=== PATIENT | male | born 1955 | race Hispanic/Latino ===

== ENCOUNTER 2019-04-13 05:54 | Observation (INO) | payer OTHER ==
[2019-04-13] MEDS ORDERED: ASPIRIN PO ONE (05:57)
--- NOTE | 2019-04-13 06:12 | Emergency Department Report ---
ED Chest Pain HPI - General Chief Complaint: Chest Pain Stated Complaint: CHEST PAIN Time Seen by Provider: 04/13/19 06:05 Source: patient, EMS Mode of arrival: Stretcher Limitations: No Limitations - History of Present Illness Initial Comments: Patient is a male presents to emergency room with complaints of chest pain. He states his chest pain started at 4:30 this morning. Patient states the chest pain is left chest and is nonradiating. Patient states the chest pain feels like a pressure or heaviness. Patient states it feels like semisitting on his chest. Patient states he received nitroglycerin 2 in route by EMS with some relief. Patient states he is not on aspirin every day. He states he takes Plavix everyday. He states he has a heart attack in July 2018 and received 3 stents. Patient denies fever and chills. Patient denies nausea vomiting. Patient denies shortness of breath. MD Complaint: chest pain -: Sudden Onset: during rest Pain Location: substernal, left chest Pain Radiation: none Severity: moderate Severity scale (0 -10): 5 Quality: tightness, heaviness, pressure Consistency: constant Improves With: nitroglycerin, rest Worsens With: exertion re: denies: nausea, vomting, diaphoresis, dyspnea, sense of impending doom Other Symptoms: denies: cough, fever, syncope, rash, acid taste in mouth, leg swelling, palpitations, burping Treatments Prior to Arrival: none Aspirin use within the Past 7 Days: (0) No - Related Data On Oral Contraceptives: No Home Medications Medication Instructions Recorded Confirmed Last Taken Valsartan [Diovan] 160 mg PO QDAY 04/13/19 04/13/19 04/13/19 Warfarin [Coumadin] 5 mg PO QDAY 04/13/19 04/13/19 04/13/19 Previous Rx's Medication Instructions Recorded Last Taken Type AtorvaSTATin [Lipitor] 80 mg PO QHS #30 tablet 08/05/18 04/13/19 Rx Clopidogrel [Plavix] 75 mg PO QDAY #30 tablet 08/05/18 04/13/19 Rx ISOSORBIDE MONOnitrate [Imdur ER] 30 mg PO QDAY #30 tablet 08/05/18 04/13/19 Rx Metoprolol [Lopressor TAB] 50 mg PO BID #60 tablet 08/05/18 04/13/19 Rx metFORMIN [Glucophage] 500 mg PO BID #60 tablet 08/05/18 04/13/19 Rx Allergies Allergy/AdvReac Type Severity Reaction Status Date / Time No Known Allergies Allergy Unverified 10/01/14 08:12 Heart Score - HEART Score History: Moderately suspicious EKG: Non-specific Age: 45-65 Risk factors: > 3 risk factors or hx of atherosclerotic disease Troponin: < normal limit HEART Score: 5 ED Review of Systems ROS: Stated complaint: CHEST PAIN Other details as noted in HPI Constitutional: denies: chills, fever Eyes: denies: eye pain, eye discharge, vision change ENT: denies: ear pain, throat pain Respiratory: denies: cough, shortness of breath, wheezing Cardiovascular: chest pain. denies: palpitations Endocrine: no symptoms reported Gastrointestinal: denies: abdominal pain, nausea, diarrhea Genitourinary: denies: urgency, dysuria Musculoskeletal: denies: back pain, joint swelling, arthralgia Skin: denies: rash, lesions Neurological: denies: headache, weakness, paresthesias Psychiatric: denies: anxiety, depression Hematological/Lymphatic: denies: easy bleeding, easy bruising ED Past Medical Hx - Past Medical History Previous Medical History?: Yes Hx Hypertension: Yes Hx Heart Attack/AMI: Yes (07/25 - 3 stents) Hx Congestive Heart Failure: No Hx Diabetes: Yes Hx Asthma: No Hx COPD: No Additional medical history: Noncompliant - Surgical History Past Surgical History?: Yes Hx Coronary Stent: Yes Additional Surgical History: Colon cancer surgery - Family History Family history: no significant - Social History Smoking Status: Never Smoker Substance Use Type: None - Medications Home Medications: Home Medications Medication Instructions Recorded Confirmed Last Taken Type AtorvaSTATin [Lipitor] 80 mg PO QHS #30 tablet 08/05/18 04/13/19 04/13/19 Rx Clopidogrel [Plavix] 75 mg PO QDAY #30 tablet 08/05/18 04/13/19 04/13/19 Rx ISOSORBIDE MONOnitrate [Imdur ER] 30 mg PO QDAY #30 tablet 08/05/18 04/13/19 04/13/19 Rx Metoprolol [Lopressor TAB] 50 mg PO BID #60 tablet 08/05/18 04/13/19 04/13/19 Rx metFORMIN [Glucophage] 500 mg PO BID #60 tablet 08/05/18 04/13/19 04/13/19 Rx Valsartan [Diovan] 160 mg PO QDAY 04/13/19 04/13/19 04/13/19 History Warfarin [Coumadin] 5 mg PO QDAY 04/13/19 04/13/19 04/13/19 History ED Physical Exam - General Limitations: No Limitations General appearance: alert, in no apparent distress - Head Head exam: Present: atraumatic, normocephalic - Eye Eye exam: Present: normal appearance - ENT ENT exam: Present: mucous membranes moist - Neck Neck exam: Present: normal inspection - Respiratory Respiratory exam: Present: normal lung sounds bilaterally. Absent: respiratory distress - Cardiovascular Cardiovascular Exam: Present: regular rate, normal rhythm. Absent: systolic murmur, diastolic murmur, rubs, gallop - GI/Abdominal GI/Abdominal exam: Present: soft, normal bowel sounds - Rectal Rectal exam: Present: deferred - Extremities Exam Extremities exam: Present: normal inspection - Back Exam Back exam: Present: normal inspection - Neurological Exam Neurological exam: Present: alert, oriented X3 - Psychiatric Psychiatric exam: Present: normal affect, normal mood - Skin Skin exam: Present: warm, dry, intact, normal color. Absent: rash ED Course Vital Signs 04/13/19 04/13/19 04/13/19 05:55 06:42 06:43 Temperature 97.9 F Pulse Rate 88 80 Respiratory 20 18 22 Rate Blood Pressure Blood Pressure 129/81 110/68 [Right] O2 Sat by Pulse 99 95 Oximetry 04/13/19 04/13/19 04/13/19 07:26 07:30 08:00 Temperature 98.1 F Pulse Rate 72 74 62 Respiratory 16 13 18 Rate Blood Pressure 113/71 114/66 Blood Pressure 118/74 [Right] O2 Sat by Pulse 97 97 Oximetry 04/13/19 04/13/19 04/13/19 08:30 09:00 09:31 Temperature Pulse Rate 62 61 61 Respiratory 14 19 13 Rate Blood Pressure 112/65 108/70 116/60 Blood Pressure [Right] O2 Sat by Pulse 97 95 97 Oximetry 04/13/19 04/13/19 04/13/19 10:00 10:30 11:00 Temperature Pulse Rate 61 64 63 Respiratory 15 16 21 Rate Blood Pressure 104/60 92/47 99/56 Blood Pressure [Right] O2 Sat by Pulse 98 97 97 Oximetry - Reevaluation(s) Reevaluation #1: I discussed all results with patient. Discussed plan with the patient. Patient will be admitted to the hospital service. Patient agrees to plan of care. 04/13/19 09:31 - Consultations Consultation #1: Hospitalist consulted for admission. Hospitalist to admit patient. Hospitalist to assume care patient. Bridging orders placed 04/13/19 09:31 RAYSHAWN score - Rayshawn Score Age > 65: (0) No Aspirin use within the Past 7 Days: (0) No 3 or more CAD Risk Factors: (1) Yes 2 or more Angina events in past 24 hrs: (0) No Known CAD with more than 50% Stenosis: (0) No Elevated Cardiac Markers: (0) No ST Deviation Greater than 0.5mm: (0) No RAYSHAWN Score: 1 ED Medical Decision Making - Lab Data Result diagrams: 04/13/19 06:04 04/13/19 06:04 - EKG Data -: EKG Interpreted by Me EKG shows normal: sinus rhythm, axis, intervals, QRS complexes, ST-T waves Rate: normal - Radiology Data Radiology results: report reviewed, image reviewed interpreted by me: No acute findings on chest x-ray - Medical Decision Making Patient is a 63-year-old male that is emergent with chest pain. Patient has a history of CAD and a recent OR with stent placed. Patient admitted to the hospitalist service. Patient's initial cardiac workup negative. Patient's EKG negative. Patient's chest x-ray negative. Patient admitted to rule out ACS. - Differential Diagnosis ACS. Chest pain. CAD. Diabetes Critical Care Time: Yes Critical care attestation.: If time is entered above; I have spent that time in minutes in the direct care of this critically ill patient, excluding procedure time. Critical Care Time: 35 minutes ED Disposition Clinical Impression: Diabetes mellitus Qualifiers: Diabetes mellitus type: type 2 Diabetes mellitus care home insulin use: with meterman use Diabetes mellitus complication status: with other specified complication Qualified Code(s): E11.69 - Type 2 diabetes mellitus with other specified complication Chest pain Qualifiers: Chest pain type: unspecified Qualified Code(s): R07.9 - Chest pain, unspecified CAD (coronary artery disease) Qualifiers: Coronary Disease-Associated Artery/Lesion type: [place] artery [place] vs. transplanted heart: [place] heart Associated angina: angina presence unspecified Qualified Code(s): I25.10 - Atherosclerotic heart disease of [place] coronary artery without angina pectoris Disposition: OP ADMIT IP TO THIS HOSP Is pt being admited?: Yes Does the pt Need Aspirin: No Condition: Critical Time of Disposition: 09:35
[2019-04-13] MEDS ORDERED: MORPHINE IV ONE (06:21)
[2019-04-13 06:48] LABS: Basophils # (Auto) 0.1 K/mm3 (0.0-0.1); Basophils % (Auto) 0.9 % (0.0-1.8); Eosinophils # (Auto) 0.2 K/mm3 (0.0-0.4); Eosinophils % (Auto) 2.2 % (0.0-4.3); Hematocrit 41.4 % (35.5-45.6); Hemoglobin 14.2 gm/dl (11.8-15.2); Lymphocytes # (Auto) 1.9 K/mm3 (1.2-5.4); Lymphocytes % (Auto) 26.7 % (13.4-35.0); Mean Corpuscular HGB Conc 34 % (32-34); Mean Corpuscular Volume 89 fl (84-94); Monocytes # (Auto) 0.5 K/mm3 (0.0-0.8); Monocytes % (Auto) 7.1 % (0.0-7.3); Platelet Count 202 K/mm3 (140-440); Red Blood Count 4.66 M/mm3 (3.65-5.03); Red Cell Distribution Width 13.5 % (13.2-15.2)
--- NOTE | 2019-04-13 06:58 | XRay Report ---
CHEST 1 VIEW INDICATION / CLINICAL INFORMATION: Chest Pain. COMPARISON: 08/04/2018 FINDINGS: SUPPORT DEVICES: None. HEART / MEDIASTINUM: No significant abnormality. LUNGS / PLEURA: No significant pulmonary or pleural abnormality. No pneumothorax. ADDITIONAL FINDINGS: No significant additional findings. IMPRESSION: 1. No significant change Signer Name: Salty Griffith MD Signed: 04/13/2019 6:53 AM Workstation Name: [id number]
[2019-04-13 08:46] LABS: BUN/Creatinine Ratio 20; Blood Urea Nitrogen 14 mg/dL (9-20); Calcium 8.9 mg/dL (8.4-10.2); Hemolysis Index 5
[2019-04-13] MEDS ORDERED: ZOFRAN IV PRN (10:31)
[2019-04-13] MEDS ORDERED: SODIUM CHLORIDE FLUSH SYRINGE 10 ML IV PRN (10:31)
[2019-04-13] MEDS ORDERED: TYLENOL PO PRN (10:31)
[2019-04-13] MEDS ORDERED: PERCOCET 5/325 PO PRN (10:31)
[2019-04-13] MEDS ORDERED: MORPHINE IV PRN (10:31)
[2019-04-13] MEDS ORDERED: D50W (25GM) Syringe IV PRN (10:35)
--- NOTE | 2019-04-13 10:37 | History and Physical Report ---
History of Present Illness History of present illness: 63m who presents with intermittent chest pain since 4:30am this morning Medications and Allergies Allergies Allergy/AdvReac Type Severity Reaction Status Date / Time No Known Allergies Allergy Unverified 10/01/14 08:12 Home Medications Medication Instructions Recorded Confirmed Last Taken Type glyBURIDE [Glyburide] 5 mg PO QDAY #60 tablet 03/28/16 08/04/18 Unknown Rx Aspirin [Aspirin BABY CHEW TAB] 81 mg PO QDAY tab.chew 08/05/18 Unknown Rx AtorvaSTATin [Lipitor] 80 mg PO QHS #30 tablet 08/05/18 Unknown Rx Clopidogrel [Plavix] 75 mg PO QDAY #30 tablet 08/05/18 Unknown Rx ISOSORBIDE MONOnitrate [Imdur ER] 30 mg PO QDAY #30 tablet 08/05/18 Unknown Rx Losartan [Cozaar] 25 mg PO QDAY #30 tablet 08/05/18 Unknown Rx Metoprolol [Lopressor TAB] 50 mg PO BID #60 tablet 08/05/18 Unknown Rx metFORMIN [Glucophage] 500 mg PO BID #60 tablet 08/05/18 Unknown Rx Active Meds: Active Medications Acetaminophen (Tylenol) 650 mg PO Q4H PRN PRN Reason: Pain MILD(1-3)/Fever >100.5/COREA Aspirin (Baby Aspirin) 81 mg PO QDAY [facility] Atorvastatin Calcium (Lipitor) 80 mg PO QHS [facility] Clopidogrel Bisulfate (Plavix) 75 mg PO QDAY [facility] Enoxaparin Sodium (Lovenox) 40 mg SUB-Q QDAY [facility] Glyburide (Diabeta) 5 mg PO QDAY [facility] Isosorbide Mononitrate (Imdur) 30 mg PO QDAY [facility] Losartan Potassium (Cozaar) 25 mg PO QDAY [facility] Metoprolol Tartrate (Lopressor) 50 mg PO BID [facility] Morphine Sulfate (Morphine) 2 mg IV Q4H PRN PRN Reason: Pain, Moderate (4-6) Ondansetron HCl (Zofran) 4 mg IV Q8H PRN PRN Reason: Nausea And Vomiting Oxycodone/Acetaminophen (Percocet 5/325) 1 tab PO Q6H PRN PRN Reason: Pain, Moderate (4-6) Sodium Chloride (Sodium Chloride Flush Syringe 10 Ml) 10 ml IV BID [facility] Sodium Chloride (Sodium Chloride Flush Syringe 10 Ml) 10 ml IV PRN PRN PRN Reason: LINE FLUSH Exam - Constitutional Vitals: Temp Pulse Resp BP Pulse Ox 98.1 F 61 19 108/70 95 04/13/19 07:26 04/13/19 09:00 04/13/19 09:00 04/13/19 09:00 04/13/19 09:00 General appearance: Present: no acute distress, well-nourished - EENT Eyes: Present: PERRL ENT: hearing intact, clear oral mucosa - Neck Neck: Present: supple, normal ROM - Respiratory Respiratory effort: normal Respiratory: bilateral: CTA - Cardiovascular Heart Sounds: Present: S1 & S2. Absent: rub, click - Extremities Extremities: pulses symmetrical, No edema Peripheral Pulses: within normal limits - Abdominal General gastrointestinal: Present: soft, non-tender, non-distended, normal bowel sounds Male genitourinary: Present: normal - Integumentary Integumentary: Present: clear, warm, dry - Musculoskeletal Musculoskeletal: gait normal, strength equal bilaterally - Psychiatric Psychiatric: appropriate mood/affect, intact judgment & insight - Neurologic Neurologic: CNII-XII intact, moves all extremities Results - Labs CBC & Chem 7: 04/13/19 06:04 04/13/19 06:04 Labs: Laboratory Last Values WBC 7.1 K/mm3 (4.5-11.0) 04/13/19 06:04 RBC 4.66 M/mm3 (3.65-5.03) 04/13/19 06:04 Hgb 14.2 gm/dl (11.8-15.2) 04/13/19 06:04 Hct 41.4 % (35.5-45.6) 04/13/19 06:04 MCV 89 fl (84-94) 04/13/19 06:04 MCH 30 pg (28-32) 04/13/19 06:04 MCHC 34 % (32-34) 04/13/19 06:04 RDW 13.5 % (13.2-15.2) 04/13/19 06:04 Plt Count 202 K/mm3 (140-440) 04/13/19 06:04 Lymph % (Auto) 26.7 % (13.4-35.0) 04/13/19 06:04 Whiteside % (Auto) 7.1 % (0.0-7.3) 04/13/19 06:04 Eos % (Auto) 2.2 % (0.0-4.3) 04/13/19 06:04 Baso % (Auto) 0.9 % (0.0-1.8) 04/13/19 06:04 Lymph # 1.9 K/mm3 (1.2-5.4) 04/13/19 06:04 Whiteside # 0.5 K/mm3 (0.0-0.8) 04/13/19 06:04 Eos # 0.2 K/mm3 (0.0-0.4) 04/13/19 06:04 Baso # 0.1 K/mm3 (0.0-0.1) 04/13/19 06:04 Seg Neutrophils % 63.1 % (40.0-70.0) 04/13/19 06:04 Seg Neutrophils # 4.5 K/mm3 (1.8-7.7) 04/13/19 06:04 Sodium 137 mmol/L (137-145) 04/13/19 06:04 Potassium 4.1 mmol/L (3.6-5.0) 04/13/19 06:04 Chloride 103.9 mmol/L (98-107) 04/13/19 06:04 Carbon Dioxide 19 mmol/L (22-30) L 04/13/19 06:04 18 mmol/L 04/13/19 06:04 BUN 14 mg/dL (9-20) 04/13/19 06:04 0.7 mg/dL (0.8-1.5) L 04/13/19 06:04 Estimated GFR > 60 ml/min 04/13/19 06:04 20 % 04/13/19 06:04 Glucose 209 mg/dL (75-100) H 04/13/19 06:04 Calcium 8.9 mg/dL (8.4-10.2) 04/13/19 06:04 0.010 ng/mL (0.00-0.029) 04/13/19 09:03 Assessment and Plan Assessment and plan: 63M with hx of cad sp stents who pw chest pain x1 day Chest pain, hx of cad sp aspirin, trop neg x 2, cardiology consult keep npo, morphine prn chest pain DM ssi, cont glyburide, hold metformin as he may receive contrast dvt ppx- lovenox
[2019-04-13] MEDS ORDERED: COZAAR PO SCH (11:00)
--- NOTE | 2019-04-13 12:01 | Consultation ---
History of Present Illness Consult date: 04/13/19 Requesting physician: ROSARIO STANTON Consult reason: chest pain History of present illness: The pt is a 63 YO male with past medical history of CAD s/p acute anterior STEMI with PCI of prox LAD, mid LAD (culprit lesion) and distal LAD on 08/03/2018, HTN, HLP, DM, morbid obesity, HFrEF, CMP, LV thrombus, anticoagulated with coumadin. He is followed in our office by Dr. Dudley. He presented with chest pain which he noted when he woke up this morning at 4:30AM. He states he was feeling well last night when he went to sleep, no chest pain at that time. He describes the pain as a constant midsternal and left-sided pressure which worsened throughout the morning as he was getting dressed for work. He was walking out to his truck when he noted dizziness and nausea and worsening chest pain and thus he decided to seek medical attention. The pain is similar to the pain he experienced with his AMI, however the pain is not as intense as it was with the AMI. He also reports dyspnea on exertion for approximately the past 1 week. He denies any palpitations, vomiting, diaphoresis or syncope. He reports compliance with his home medication regimen, including coumadin and plavix. On evaluation, pt reports that his pain is nearly resolved after receiving ASA 325 and morphine. Echo done in our office on 02/21/2019 showed EF 35-40%, apical thrombus noted in LV apex, LV mid-distal septal hypokinesis, mild TR, RVSP 34mmHg. Past History Past Medical History: CAD, diabetes, heart failure, hypertension, hyperlipidemia, other (LV apical thrombus) Past Surgical History: PTCA Social history: denies: smoking, alcohol abuse, prescription drug abuse Medications and Allergies Allergies Allergy/AdvReac Type Severity Reaction Status Date / Time No Known Allergies Allergy Unverified 10/01/14 08:12 Home Medications Medication Instructions Recorded Confirmed Last Taken Type AtorvaSTATin [Lipitor] 80 mg PO QHS #30 tablet 08/05/18 04/13/19 04/13/19 Rx Clopidogrel [Plavix] 75 mg PO QDAY #30 tablet 08/05/18 04/13/19 04/13/19 Rx ISOSORBIDE MONOnitrate [Imdur ER] 30 mg PO QDAY #30 tablet 08/05/18 04/13/19 04/13/19 Rx Metoprolol [Lopressor TAB] 50 mg PO BID #60 tablet 08/05/18 04/13/19 04/13/19 Rx metFORMIN [Glucophage] 500 mg PO BID #60 tablet 08/05/18 04/13/19 04/13/19 Rx Valsartan [Diovan] 160 mg PO QDAY 04/13/19 04/13/19 04/13/19 History Warfarin [Coumadin] 5 mg PO QDAY 04/13/19 04/13/19 04/13/19 History Active Meds: Active Medications Acetaminophen (Tylenol) 650 mg PO Q4H PRN PRN Reason: Pain MILD(1-3)/Fever >100.5/COREA Aspirin (Baby Aspirin) 81 mg PO QDAY [facility] Atorvastatin Calcium (Lipitor) 80 mg PO QHS [facility] Clopidogrel Bisulfate (Plavix) 75 mg PO QDAY [facility] Dextrose (D50w (25gm) Syringe) 50 ml IV PRN PRN PRN Reason: Hypoglycemia Enoxaparin Sodium (Lovenox) 40 mg SUB-Q QDAY [facility] Glyburide (Diabeta) 5 mg PO QDAY [facility] Insulin Human Lispro (Humalog) 0 unit SUB-Q ACHS [facility]; Protocol Isosorbide Mononitrate (Imdur) 30 mg PO QDAY [facility] Losartan Potassium (Cozaar) 25 mg PO QDAY [facility] Metoprolol Tartrate (Lopressor) 50 mg PO BID [facility] Morphine Sulfate (Morphine) 2 mg IV Q4H PRN PRN Reason: Pain, Moderate (4-6) Ondansetron HCl (Zofran) 4 mg IV Q8H PRN PRN Reason: Nausea And Vomiting Oxycodone/Acetaminophen (Percocet 5/325) 1 tab PO Q6H PRN PRN Reason: Pain, Moderate (4-6) Sodium Chloride (Sodium Chloride Flush Syringe 10 Ml) 10 ml IV BID [facility] Sodium Chloride (Sodium Chloride Flush Syringe 10 Ml) 10 ml IV PRN PRN PRN Reason: LINE FLUSH Review of Systems Constitutional: no weight loss, no weight gain, no fever, no chills, no sweats Ears, nose, mouth and throat: no ear pain, no nose pain, no sinus pressure, no sinus pain Cardiovascular: chest pain, shortness of breath, dyspnea on exertion, decreased exercise tolerance, no orthopnea, no palpitations, no rapid/irregular heart beat, no edema, no syncope, no lightheadedness Respiratory: shortness of breath, dyspnea on exertion, no cough, no congestion, no wheezing, no pain on inspiration Gastrointestinal: no abdominal pain, no nausea, no vomiting, no diarrhea, no constipation, no change in bowel habits Genitourinary Male: no dysuria, no hematuria, no flank pain, no discharge, no urinary frequency, no urinary hesitancy Musculoskeletal: no neck stiffness, no neck pain, no shooting arm pain, no arm numbness/tingling, no low back pain, no shooting leg pain Integumentary: no rash, no pruritis, no redness, no sores, no wounds Neurological: no head injury, no paralysis, no weakness, no parathesias, no numbness, no tingling, no seizures, no syncope Psychiatric: no anxiety Endocrine: no cold intolerance, no heat intolerance Hematologic/Lymphatic: no easy bruising, no easy bleeding Allergic/Immunologic: no urticaria, no wheezing Physical Examination Vital Signs Temp Pulse Resp BP Pulse Ox 97.9 F 88 20 129/81 99 04/13/19 05:55 04/13/19 05:55 04/13/19 05:55 04/13/19 05:55 04/13/19 05:55 General appearance: no acute distress HEENT: Positive: PERRL, Normocephaly, Mucus Membranes Moist Neck: Positive: neck supple, trachea midline Cardiac: Positive: Reg Rate and Rhythm, S1/S2 Lungs: Positive: Decreased Breath Sounds Neuro: Positive: Grossly Intact Abdomen: Negative: Tender Skin: Negative: Rash Musculoskeletal: No Pain Extremities: Absent: edema Results 04/13/19 06:04 04/13/19 06:04 CBC 04/13/19 Range/Units 06:04 WBC 7.1 (4.5-11.0) K/mm3 RBC 4.66 (3.65-5.03) M/mm3 Hgb 14.2 (11.8-15.2) gm/dl Hct 41.4 (35.5-45.6) % Plt Count 202 (140-440) K/mm3 Lymph # 1.9 (1.2-5.4) K/mm3 Burt # 0.5 (0.0-0.8) K/mm3 Eos # 0.2 (0.0-0.4) K/mm3 Baso # 0.1 (0.0-0.1) K/mm3 Comprehensive Metabolic Panel 04/13/19 Range/Units 06:04 Sodium 137 (137-145) mmol/L Potassium 4.1 (3.6-5.0) mmol/L Chloride 103.9 (98-107) mmol/L Carbon Dioxide 19 L (22-30) mmol/L BUN 14 (9-20) mg/dL Creatinine 0.7 L (0.8-1.5) mg/dL Glucose 209 H (75-100) mg/dL Calcium 8.9 (8.4-10.2) mg/dL - Imaging and Cardiology Echo: report reviewed (02/21/2019 showed EF 35-40%, apical thrombus noted in LV apex, LV mid-distal septal hypokinesis, mild TR, RVSP 34mmHg. ) Cardiac cath: report reviewed (s/p acute anterior STEMI with PCI of prox LAD, mid LAD (culprit lesion) and distal LAD on 08/03/2018, ) EKG: report reviewed, image reviewed EKG interpretations - Telemetry EKG Rhythm: Sinus Rhythm - EKG Sinus rhythms and dysrhythmias: sinus rhythm Myocardial infarction: anterior OH (old age or i Assessment and Plan Chest pain / dyspnea on exertion ECG with no acute ischemic changes, Robyn negative for AMI. CXR with NAF. Chest pain currently improved after receiving ASA 325 and morphine. Echo done in our office on 02/21/2019 showed EF 35-40%, apical thrombus noted in LV apex, LV mid-distal septal hypokinesis, mild TR, RVSP 34mmHg. Plan for lexiscan MPI stress test in AM. NPO after MN. CAD s/p acute anterior STEMI with PCI of prox LAD, mid LAD (culprit lesion) and distal LAD on 08/03/2018 Cont Plavix, imdur, statin, lopressor, diovan. No ASA in setting of concurrent usage of Plavix and coumadin. LV apical thrombus Echo done in our office on 02/21/2019 showed EF 35-40%, apical thrombus noted in LV apex, LV mid-distal septal hypokinesis, mild TR, RVSP 34mmHg. Cont coumadin with tx INR 2-3. Ischemic cardiomyopathy EF 35-40% No current clinical evidence of acute heart failure. Cont GDMT as tolerated. HTN Stable. Cont home imdur, lopressor, diovan. HLP Cont statin. DM Hgb A1c 7.9. Morbid obesity The patient has been seen in conjunction with Dr. Betancur who agrees with the assessment and plan of care.
[2019-04-13] MEDS: LOPRESSOR PO SCH ×2 (12:42→21:15)
[2019-04-13] MEDS: IMDUR PO SCH (12:42)
[2019-04-13] MEDS: PLAVIX PO SCH (12:43)
[2019-04-13 12:54] LABS: INR 1.03 (0.87-1.13)
[2019-04-13] MEDS: HumaLOG SUB-Q SCH ×3 (14:10→22:05)
[2019-04-13] MEDS ORDERED: COUMADIN PO SCH (17:00)
[2019-04-13] MEDS: COUMADIN PO SCH (18:45)
[2019-04-13] MEDS: SODIUM CHLORIDE FLUSH SYRINGE 10 ML IV SCH (21:18)
[2019-04-14 05:45] LABS: INR 1.05 (0.87-1.13)
[2019-04-14] MEDS ORDERED: LEXISCAN IV ONE ×2 (07:11→07:20)
[2019-04-14] MEDS ORDERED: BABY ASPIRIN PO SCH (10:00)
[2019-04-14] MEDS ORDERED: DIOVAN PO SCH (10:00)
[2019-04-14] MEDS ORDERED: LOVENOX SUB-Q SCH ×2 (10:00→11:00)
[2019-04-14] MEDS ORDERED: DIABETA PO SCH (10:00)
--- NOTE | 2019-04-14 10:38 | Progress Note ---
Assessment and Plan Chest pain / dyspnea on exertion Chest pain currently resolved. ECG with no acute ischemic changes, Robyn negative for AMI. CXR with NAF. Echo done in our office on 02/21/2019 showed EF 35-40%, apical thrombus noted in LV apex, LV mid-distal septal hypokinesis, mild TR, RVSP 34mmHg. S/p lexiscan MPI stress test this AM which showed fixed defects, negative for ischemia, EF 38%. CAD s/p acute anterior STEMI with PCI of prox LAD, mid LAD (culprit lesion) and distal LAD on 08/03/2018 Cont Plavix, imdur, statin, lopressor, diovan. No ASA in setting of concurrent usage of Plavix and coumadin. LV apical thrombus / subtherapeutic INR (1.03 on admission) Echo done in our office on 02/21/2019 showed EF 35-40%, apical thrombus noted in LV apex, LV mid-distal septal hypokinesis, mild TR, RVSP 34mmHg. Pt reports full compliance with home Coumadin 5mg daily. Initiate lovenox 100mg BID and cont coumadin 7.5mg daily with tx INR 2-3. Will monitor INR closely as OP. Ischemic cardiomyopathy EF 35-40% No current clinical evidence of acute heart failure. Cont GDMT as tolerated. HTN Stable. Cont home imdur, lopressor, diovan. HLP Cont statin. DM Hgb A1c 7.9. Morbid obesity S/p lexiscan MPI stress test this AM which showed fixed defects, negative for ischemia, EF 38%. Currently stable cardiac status. Pt may discharge home from cardiology standpoint on home cardiac regimen. Cont lovenox 100mg BID (at discharge, will give rx for 5 days) in conjunction with coumadin 7.5mg daily with tx INR 2-3. Follow up in our [place] office for INR check and post-hospital follow up with Dr. Dudley on 04/18/2019 @ 1:15PM. The patient has been seen in conjunction with Dr. Betancur who agrees with the assessment and plan of care. Subjective Date of service: 04/14/19 Principal diagnosis: cp Interval history: pt for stress test today, no current cardiac complaints. Objective Last Vital Signs Temp 97.4 F L 04/14/19 07:52 Pulse 55 L 04/14/19 07:52 Resp 18 04/14/19 07:52 BP 142/83 04/14/19 07:52 Pulse Ox 97 04/14/19 07:52 - Physical Examination General: No Apparent Distress HEENT: Positive: PERRL, Normocephaly, Mucus Membranes Moist Neck: Positive: neck supple, trachea midline Cardiac: Positive: Reg Rate and Rhythm, S1/S2 Lungs: Positive: Decreased Breath Sounds Neuro: Positive: Grossly Intact Abdomen: Negative: Tender Skin: Negative: Rash Musculoskeletal: No Pain Extremities: Absent: edema - Labs and Meds Coagulation 04/13/19 04/14/19 Range/Units 12:28 04:25 PT 13.2 13.4 (12.2-14.9) Sec. INR 1.03 1.05 (0.87-1.13) - Imaging and Cardiology EKG: report reviewed, image reviewed Echo: report reviewed (02/21/2019 showed EF 35-40%, apical thrombus noted in LV apex, LV mid-distal septal hypokinesis, mild TR, RVSP 34mmHg. ) Cardiac cath: report reviewed (s/p acute anterior STEMI with PCI of prox LAD, mid LAD (culprit lesion) and distal LAD on 08/03/2018, ) - EKG Sinus rhythms and dysrhythmias: sinus rhythm Myocardial infarction: anterior VA (old age or i
[2019-04-14 10:43] VITALS: BP 127/88
--- NOTE | 2019-04-14 10:53 | Discharge Summary ---
Providers - Providers Date of Admission: 04/13/19 10:31 Attending physician: ROSARIO STANTON MD 04/13/19 10:31 Consult to Physician [CONS] Routine Comment: Consulting Provider: APRIL FRAGOSO Physician Instructions: Reason For Exam: chest pain, hx of cad Primary care physician: DAVID BARRERA Hospitalization Condition: Critical Exam - Constitutional Vitals: Temp Pulse Resp BP Pulse Ox 97.4 F L 55 L 18 127/88 97 04/14/19 07:52 04/14/19 07:52 04/14/19 07:52 04/14/19 09:55 04/14/19 07:52 Plan Forms: Warfarin Discharge Instruction
[2019-04-14] MEDS: HumaLOG SUB-Q SCH ×2 (11:14→11:42)
[2019-04-14] MEDS: LOPRESSOR PO SCH (11:25)
[2019-04-14] MEDS: IMDUR PO SCH (11:25)
[2019-04-14] MEDS: PLAVIX PO SCH (11:26)
[2019-04-14] MEDS: SODIUM CHLORIDE FLUSH SYRINGE 10 ML IV SCH (11:27)
[2019-04-14] MEDS: COUMADIN PO SCH (16:42)
--- NOTE | 2019-04-14 23:58 | Treadmill Report ---
NUCLEAR PERFUSION STUDY REASON FOR STUDY: Chest pain. READING PHYSICIAN: Carrillo Dudley M.D. IMAGING PROTOCOL: Single isotope used document as single isotope protocol. The patient received 10 mCi of Technetium 99m Tetrofosmin for resting image and 28 mCi of Technetium 99m Tetrofosmin for stress imaging. The imaging for the whole procedure was completed 30-90 minutes following the initial injection of Technetium 99m Tetrofosmin. The SPECT imaging in the 180 degree arc was performed in the right anterior oblique projection. Computerized reconstruction of the images was performed for analysis. IMAGING RESULTS: Normal cavity size from stress to rest. Distribution radionuclide is normal in the anterior, mid inferior, septal, and lateral wall, but there is a large absent myocardial perfusion in the apical, inferoapical region seen both stress and rest with akinesis of that territory with Gated SPECT EF of 38%. The patient infused Lexiscan with no EKG changes. SUMMARY: 1. Negative Lexiscan EKG. 2. No significant stress ischemia. 3. There is a large apical infarction and large inferoapical infarction with normal perfusion in the anterior, mid inferior, septal, lateral regions with EF of 38% with akinesis of the apical and inferoapical region. [facility]# [id number] WALTER/ALEX
== END 2019-04-14 18:35 | disposition home or self-care (01) ==
LOC: ED 05:54 → 4A 10:31
PROVIDERS: ADMIT Internal Medicine; ATTEND Internal Medicine
DX: R07.89 Other chest pain (principal); E11.9 Type 2 diabetes mellitus without complications
CPT/HCPCS: 36415; 71045; 78452; 80048; 82962; 83036; 84484; 85025; 85610; 87116; 93005; 93010; 93017; 96372; 96374; 99291; A9270; A9502; G0378; J1650; J2270; J2785; J1815

== ENCOUNTER 2019-07-05 10:29 | Emergency (ER) | payer OTHER ==
[2019-07-05] MEDS ORDERED: ONDANSETRON 4 MG/2 ML INJ IV ONE ×2 (11:14→15:22)
--- NOTE | 2019-07-05 11:14 | Emergency Department Report ---
ED Abdominal Pain HPI - General Chief Complaint: Abdominal Pain Stated Complaint: ABD PAIN (L) SIDE PAIN Time Seen by Provider: 07/05/19 11:06 Source: patient, EMS Mode of arrival: Stretcher Limitations: No Limitations - History of Present Illness Initial Comments: 63-year-old male patient with history of diabetes, CHF, CAD, hypertension, and obesity presents with complaints of left lower abdominal pain today. He admits to nausea, but denies any vomiting, constipation, hematochezia, or dark tarry stools. He rates the pain as a 9 out of 10 in severity and describes it as stabbing. Patient also denies fever/chills. It's history of bowel resection due to colon cancer. MD Complaint: abdominal pain -: Sudden Location: LLQ Radiation: none Migration to: no migration Severity scale (0 -10): 9 Quality: stabbing Improves With: nothing Worsens With: nothing Associated Symptoms: nausea. denies: vomiting, diarrhea, fever, chills, constipation, dysuria, hematemesis, hematochezia, melena, hematuria, syncope - Related Data Home Medications Medication Instructions Recorded Confirmed Last Taken Valsartan [Diovan] 160 mg PO QDAY 04/13/19 04/13/19 04/13/19 Previous Rx's Medication Instructions Recorded Last Taken Type AtorvaSTATin [Lipitor] 80 mg PO QHS #30 tablet 08/05/18 04/13/19 Rx Clopidogrel [Plavix] 75 mg PO QDAY #30 tablet 08/05/18 04/13/19 Rx ISOSORBIDE MONOnitrate [Imdur ER] 30 mg PO QDAY #30 tablet 08/05/18 04/13/19 Rx Metoprolol [Lopressor TAB] 50 mg PO BID #60 tablet 08/05/18 04/13/19 Rx metFORMIN [Glucophage] 500 mg PO BID #60 tablet 08/05/18 04/13/19 Rx Enoxaparin 100 mg SUB-Q Q12HR #14 syringe 04/14/19 Unknown Rx Warfarin [Coumadin] 7.5 mg PO DAILY@1700 #30 tablet 04/14/19 Unknown Rx glyBURIDE [Diabeta] 5 mg PO QDAY tablet 04/14/19 Unknown Rx Promethazine HCl [Promethazine TAB] 12.5 mg PO [id number] PRN #15 tab 07/05/19 Unknown Rx traMADol [Ultram 50 MG tab] 50 mg PO Q6H PRN #10 tablet 07/05/19 Unknown Rx Allergies Allergy/AdvReac Type Severity Reaction Status Date / Time No Known Allergies Allergy Unverified 10/01/14 08:12 ED Review of Systems ROS: Stated complaint: ABD PAIN (L) SIDE PAIN Other details as noted in HPI Constitutional: denies: chills, fever Eyes: denies: vision change Respiratory: denies: cough, shortness of breath, SOB with exertion, SOB at rest, wheezing Cardiovascular: denies: chest pain, palpitations Endocrine: no symptoms reported Gastrointestinal: abdominal pain, nausea. denies: vomiting, diarrhea, constipat ion, hematemesis, melena, hematochezia Genitourinary: denies: urgency, dysuria, frequency, hematuria Musculoskeletal: denies: back pain, joint swelling, arthralgia, myalgia Skin: denies: rash, lesions Neurological: denies: headache, weakness, paresthesias Psychiatric: denies: anxiety, depression Hematological/Lymphatic: other (pt on coumadin ) ED Past Medical Hx - Past Medical History Hx Hypertension: Yes Hx Heart Attack/AMI: Yes (07/25 - 3 stents) Hx Congestive Heart Failure: No Hx Diabetes: Yes Hx Asthma: No Hx COPD: No Additional medical history: Noncompliant - Surgical History Hx Coronary Stent: Yes Additional Surgical History: Colon cancer surgery - Social History Smoking Status: Never Smoker - Medications Home Medications: Home Medications Medication Instructions Recorded Confirmed Last Taken Type AtorvaSTATin [Lipitor] 80 mg PO QHS #30 tablet 08/05/18 04/13/19 04/13/19 Rx Clopidogrel [Plavix] 75 mg PO QDAY #30 tablet 08/05/18 04/13/19 04/13/19 Rx ISOSORBIDE MONOnitrate [Imdur ER] 30 mg PO QDAY #30 tablet 08/05/18 04/13/19 04/13/19 Rx Metoprolol [Lopressor TAB] 50 mg PO BID #60 tablet 08/05/18 04/13/19 04/13/19 Rx metFORMIN [Glucophage] 500 mg PO BID #60 tablet 08/05/18 04/13/19 04/13/19 Rx Valsartan [Diovan] 160 mg PO QDAY 04/13/19 04/13/19 04/13/19 History Enoxaparin 100 mg SUB-Q Q12HR #14 syringe 04/14/19 Unknown Rx Warfarin [Coumadin] 7.5 mg PO DAILY@1700 #30 tablet 04/14/19 Unknown Rx glyBURIDE [Diabeta] 5 mg PO QDAY tablet 04/14/19 Unknown Rx Promethazine HCl [Promethazine TAB] 12.5 mg PO [id number] PRN #15 tab 07/05/19 U nknown Rx traMADol [Ultram 50 MG tab] 50 mg PO Q6H PRN #10 tablet 07/05/19 Unknown Rx ED Physical Exam - General Limitations: No Limitations General appearance: alert, in no apparent distress - Head Head exam: Present: atraumatic, normocephalic - Eye Eye exam: Present: normal appearance - ENT ENT exam: Present: mucous membranes moist - Neck Neck exam: Present: normal inspection - Respiratory Respiratory exam: Present: normal lung sounds bilaterally. Absent: respiratory distress - Cardiovascular Cardiovascular Exam: Present: regular rate, normal rhythm. Absent: systolic murmur, diastolic murmur, rubs, gallop - GI/Abdominal GI/Abdominal exam: Present: soft, tenderness (LLQ), normal bowel sounds. Absent: distended, guarding - Rectal Rectal exam: Present: deferred - Back Exam Back exam: Absent: CVA tenderness (R), CVA tenderness (L) - Neurological Exam Neurological exam: Present: alert, oriented X3 - Psychiatric Psychiatric exam: Present: normal affect, normal mood - Skin Skin exam: Present: warm, dry, intact, normal color. Absent: rash ED Course Vital Signs 07/05/19 07/05/19 07/05/19 10:41 10:58 10:59 Temperature 97.3 F L Pulse Rate 56 L 58 L Respiratory 18 18 17 Rate Blood Pressure 138/76 118/72 [Right] O2 Sat by Pulse 97 97 Oximetry ED Medical Decision Making - Lab Data Result diagrams: 07/05/19 12:15 07/05/19 12:15 Lab Results 07/05/19 07/05/19 07/05/19 Range/Units 12:15 12:15 12:15 WBC 7.4 (4.5-11.0) K/mm3 RBC 4.90 (3.65-5.03) M/mm3 Hgb 14.9 (11.8-15.2) gm/dl Hct 44.1 (35.5-45.6) % MCV 90 (84-94) fl MCH 30 (28-32) pg MCHC 34 (32-34) % RDW 13.4 (13.2-15.2) % Plt Count 199 (140-440) K/mm3 Lymph % (Auto) 29.9 (13.4-35.0) % Hand % (Auto) 6.3 (0.0-7.3) % Eos % (Auto) 2.4 (0.0-4.3) % Baso % (Auto) 1.2 (0.0-1.8) % Lymph # 2.2 (1.2-5.4) K/mm3 Hand # 0.5 (0.0-0.8) K/mm3 Eos # 0.2 (0.0-0.4) K/mm3 Baso # 0.1 (0.0-0.1) K/mm3 Seg Neutrophils % 60.2 (40.0-70.0) % Seg Neutrophils # 4.4 (1.8-7.7) K/mm3 PT (12.2-14.9) Sec. INR (0.87-1.13) APTT (24.2-36.6) Sec. Sodium 134 L (137-145) mmol/L Potassium 4.3 (3.6-5.0) mmol/L Chloride 104.1 (98-107) mmol/L Carbon Dioxide 18 L (22-30) mmol/L Anion Gap 16 mmol/L BUN 14 (9-20) mg/dL Creatinine 0.6 L (0.8-1.5) mg/dL Estimated GFR > 60 ml/min BUN/Creatinine Ratio 23 % Glucose 176 H (75-100) mg/dL Calcium 8.9 (8.4-10.2) mg/dL Total Bilirubin 0.70 (0.1-1.2) mg/dL Direct Bilirubin < 0.2 (0-0.2) mg/dL Indirect Bilirubin 0.5 mg/dL AST 9 (5-40) units/L ALT 7 (7-56) units/L Alkaline Phosphatase 73 (35-129) units/L Troponin T < 0.010 (0.00-0.029) ng/mL Total Protein 6.9 (6.3-8.2) g/dL Albumin 3.8 L (3.9-5) g/dL Albumin/Globulin Ratio 1.2 % Lipase 10 L (13-60) units/L Urine Color (Yellow) Urine Turbidity (Clear) Urine pH (5.0-7.0) Ur Specific [place] (1.003-1.030) Urine Protein (Negative) mg/dL Urine Glucose (UA) (Negative) mg/dL Urine Ketones (Negative) mg/dL Urine Blood (Negative) Urine Nitrite (Negative) Urine Bilirubin (Negative) Urine Urobilinogen (<2.0) mg/dL Ur Leukocyte Esterase (Negative) Urine WBC (Auto) (0.0-6.0) /HPF Urine RBC (Auto) (0.0-6.0) /HPF Urine Mucus /HPF 07/05/19 07/05/19 Range/Units 12:15 16:05 WBC (4.5-11.0) K/mm3 RBC (3.65-5.03) M/mm3 Hgb (11.8-15.2) gm/dl Hct (35.5-45.6) % MCV (84-94) fl MCH (28-32) pg MCHC (32-34) % RDW (13.2-15.2) % Plt Count (140-440) K/mm3 Lymph % (Auto) (13.4-35.0) % Hand % (Auto) (0.0-7.3) % Eos % (Auto) (0.0-4.3) % Baso % (Auto) (0.0-1.8) % Lymph # (1.2-5.4) K/mm3 Hand # (0.0-0.8) K/mm3 Eos # (0.0-0.4) K/mm3 Baso # (0.0-0.1) K/mm3 Seg Neutrophils % (40.0-70.0) % Seg Neutrophils # (1.8-7.7) K/mm3 PT 13.7 (12.2-14.9) Sec. INR 1.06 (0.87-1.13) APTT 23.5 L (24.2-36.6) Sec. Sodium (137-145) mmol/L Potassium (3.6-5.0) mmol/L Chloride (98-107) mmol/L Carbon Dioxide (22-30) mmol/L Anion Gap mmol/L BUN (9-20) mg/dL Creatinine (0.8-1.5) mg/dL Estimated GFR ml/min BUN/Creatinine Ratio % Glucose (75-100) mg/dL Calcium (8.4-10.2) mg/dL Total Bilirubin (0.1-1.2) mg/dL Direct Bilirubin (0-0.2) mg/dL Indirect Bilirubin mg/dL AST (5-40) units/L ALT (7-56) units/L Alkaline Phosphatase (35-129) units/L Troponin T (0.00-0.029) ng/mL Total Protein (6.3-8.2) g/dL Albumin (3.9-5) g/dL Albumin/Globulin Ratio % Lipase (13-60) units/L Urine Color Straw (Yellow) Urine Turbidity Clear (Clear) Urine pH 5.0 (5.0-7.0) Ur Specific [place] 1.047 H (1.003-1.030) Urine Protein <15 mg/dl (Negative) mg/dL Urine Glucose (UA) Neg (Negative) mg/dL Urine Ketones Neg (Negative) mg/dL Urine Blood Neg (Negative) Urine Nitrite Neg (Negative) Urine Bilirubin Neg (Negative) Urine Urobilinogen < 2.0 (<2.0) mg/dL Ur Leukocyte Esterase Neg (Negative) Urine WBC (Auto) < 1.0 (0.0-6.0) /HPF Urine RBC (Auto) 1.0 (0.0-6.0) /HPF Urine Mucus Few /HPF - Radiology Data Radiology results: report reviewed CT abdomen pelvis w con INDICATION: acute LLQ pain. TECHNIQUE: All CT scans at this location are performed using the following dose modulation technique: Automated exposure control. Helical slices were obtained through the abdomen and pelvis. 100 cc of Omnipaque 300 is administered COMPARISON: None available. FINDINGS: Abdomen: No acute abnormality is seen in the lung bases. The heart is enlarged. There is a small amount of pericardial fluid. There is a filling defect noted in the left ventricle liver, spleen, and pancreas are unremarkable. There is a fat density nodule in the right adrenal gland characteristic of a myelolipoma. The left adrenal gland is unremarkable. There are bilateral hypodensities in the kidneys characteristic of cysts. The largest on the right measures 6.7 cm in largest on the left measures 3 cm. Atherosclerotic calcifications are noted in the aorta. Pelvis: There is no obstruction or inflammation. There are no abnormal fluid collections. Impression glottic calcifications are noted. Prostatic calcifications are noted. There is a small fat containing paraumbilical hernia. There is no obstruction, inflammation, or free air. On review of bone windows, no acute osseous abnormalities are seen. IMPRESSION: 1. There is no obstruction, inflammation, or free air. There are no abnormal collections. There are bilateral renal cysts. There is a small fat-containing paraumbilical hernia. - Medical Decision Making 63-year-old male patient here with acute onset of left lower abdominal pain this morning. WBCs are WNL. UA is WNL maladies noted on CMP. CT abdomen and also is without acute abnormalities. Patient is tachycardic and afebrile. Pain is controlled. Patient does have history of colon cancer and bowel resection. Discussed importance of follow-up with a GI specialist within the next 2-5 days. Also discussed strict return precautions in detail with patient who states understanding. Critical care attestation.: If time is entered above; I have spent that time in minutes in the direct care of this critically ill patient, excluding procedure time. ED Disposition Clinical Impression: Left lower quadrant abdominal pain Disposition: DC-01 TO HOME OR SELFCARE Is pt being admited?: No Condition: Stable Instructions: Acute Abdominal Pain (ED) Additional Instructions: Please return to the emergency room if you have any new or worsening symptoms Prescriptions: Promethazine HCl [Promethazine TAB] 12.5 mg PO [id number] PRN #15 tab PRN Reason: Nausea traMADol [Ultram 50 MG tab] 50 mg PO Q6H PRN #10 tablet PRN Reason: Pain Referrals: TROY WESTBROOK MD [Staff Physician] - 3-5 Days Forms: Work/School Release Form(ED)
[2019-07-05] MEDS ORDERED: MORPHINE 4 MG/1 ML INJ IV ONE ×2 (11:43→15:22)
[2019-07-05 12:26] LABS: Basophils # (Auto) 0.1 K/mm3 (0.0-0.1); Basophils % (Auto) 1.2 % (0.0-1.8); Eosinophils # (Auto) 0.2 K/mm3 (0.0-0.4); Eosinophils % (Auto) 2.4 % (0.0-4.3); Hematocrit 44.1 % (35.5-45.6); Hemoglobin 14.9 gm/dl (11.8-15.2); Lymphocytes # (Auto) 2.2 K/mm3 (1.2-5.4); Lymphocytes % (Auto) 29.9 % (13.4-35.0); Mean Corpuscular HGB Conc 34 % (32-34); Mean Corpuscular Volume 90 fl (84-94); Monocytes # (Auto) 0.5 K/mm3 (0.0-0.8); Monocytes % (Auto) 6.3 % (0.0-7.3); Platelet Count 199 K/mm3 (140-440); Red Cell Distribution Width 13.4 % (13.2-15.2)
[2019-07-05 12:35] LABS: INR 1.06 (0.87-1.13)
[2019-07-05 12:36] LABS: Partial Thromboplastin Time 23.5 Sec. (24.2-36.6)
[2019-07-05 12:39] LABS: BUN/Creatinine Ratio 23; Blood Urea Nitrogen 14 mg/dL (9-20); Calcium 8.9 mg/dL (8.4-10.2); Hemolysis Index 50
[2019-07-05 12:52] LABS: Alanine Aminotransferase 7 units/L (7-56); Albumin 3.8 g/dL (3.9-5)
[2019-07-05 12:56] LABS: Bilirubin,Direct < 0.2 mg/dL (0-0.2)
--- NOTE | 2019-07-05 14:15 | Cat Scan Report ---
CT abdomen pelvis w con INDICATION: acute LLQ pain. TECHNIQUE: All CT scans at this location are performed using the following dose modulation technique: Automated exposure control. Helical slices were obtained through the abdomen and pelvis. 100 cc of Omnipaque 30 0 is administered COMPARISON: None available. FINDINGS: Abdomen: No acute abnormality is seen in the lung bases. The heart is enlarged. There is a small amou nt of pericardial fluid. There is a filling defect noted in the left ventricle liver, spleen, and pancreas are unremarkable. T here is a fat density nodule in the right adrenal gland characteristic of a myelolipoma. The left adr enal gland is unremarkable. There are bilateral hypodensities in the kidneys characteristic of cysts. The largest on the right me asures 6.7 cm in largest on the left measures 3 cm. Atherosclerotic calcifications are noted in the a krishna. Pelvis: There is no obstruction or inflammation. There are no abnormal fluid collections. Impression glottic calcifications are noted. Prostatic calcifications are noted. There is a small fat containing paraumbilical hernia. There is no obstruction, inflammation, or free air. On review of bone windows, no acute osseous abnormalities are seen. IMPRESSION: 1. There is no obstruction, inflammation, or free air. There are no abnormal collections. There are bilateral renal cysts. There is a small fat-containing paraumbilical hernia. Signer Name: Ash Buenrostro MD Signed: 07/05/2019 2:11 PM Workstation Name: [id number]
[2019-07-05 16:29] LABS: Bilirubin,Urine NEG (Negative); Blood,Urine NEG (Negative); Color,Urine Straw (Yellow); Mucus,Urine FEW /HPF; Protein,Urine <15 mg/dL mg/dL (Negative); Urobilinogen,Urine < 2.0 mg/dL (<2.0); WBC,Urine < 1.0 /HPF (0.0-6.0)
[2019-07-05 17:20] VITALS: BP 115/75
== END 2019-07-05 17:53 | disposition home or self-care (01) ==
LOC: ED 10:29
DX: R10.32 Left lower quadrant pain (principal); R11.0 Nausea; I10 Essential (primary) hypertension; I25.2 Old myocardial infarction; E11.9 Type 2 diabetes mellitus without complications; Z79.84 Long term (current) use of oral hypoglycemic drugs; Z95.5 Presence of coronary angioplasty implant and graft
CPT/HCPCS: 36415; 74177; 80048; 80076; 81001; 83690; 84484; 85025; 85610; 85730; 96374; 96375; 96376; 99284; J2270; J2405; Q9967

== ENCOUNTER 2021-09-09 17:35 | Emergency (ER) | payer SELFPAY ==
[2021-09-09 17:40] VITALS: BP 162/90
[2021-09-09] MEDS ORDERED: HYDROcodone/ACETAMINOPHEN 7.5-325MG TAB PO ONE (21:15)
[2021-09-09] MEDS ORDERED: SULFAMETHOXAZOLE/TRIMETHOPRIM 800/160MG DS TAB PO ONE (21:15)
[2021-09-09] MEDS ORDERED: ONDANSETRON 4 MG ODT TAB PO ONE (21:15)
[2021-09-09] MEDS ORDERED: IBUPROFEN 600 MG TAB PO ONE (21:15)
[2021-09-09] MEDS ORDERED: LIDOCAINE-MPF (1%) 10 MG/1 ML VIAL 5 ML INFILTRATI ONE (21:15)
--- NOTE | 2021-09-10 00:13 | Emergency Department Report ---
ED General Adult HPI - General Chief complaint: Urogenital-Male Stated complaint: CYST Source: EMS Mode of arrival: Wheelchair Limitations: No Limitations - History of Present Illness Initial comments: Patient is a 66-year-old male with a history of hypertension, coronary artery disease status post PTCA stents and [id number] diabetes who presented to the ED with complaint of acute onset persistent painful posterior left thigh pain due to large painful mall on posterior left thigh for the last 1 week. Patient stated that the pain is worsened in the last 3 days such that the started bleeding with any movement. Patient denies fever, chills, traumatic injury, dizziness, syncope, numbness and tingling or weakness of lower extremities bilaterally. MD Complaint: painful swollen skin tag -: Sudden, week(s) (1) Location: lower extremity (posterior left thigh) Radiation: non-radiation Severity scale (0 -10): 9 Quality: aching, sharp Consistency: constant Improves with: none Worsens with: movement Associated Symptoms: denies other symptoms, other (swollen painful skin tag). denies: confusion, chest pain, cough, diaphoresis, fever/chills, headaches, malaise, nausea/vomiting, rash, seizure, shortness of breath, syncope, weakness Treatments Prior to Arrival: none - Related Data Home Medications Medication Instructions Recorded Confirmed Last Taken Valsartan [Diovan] 160 mg PO QDAY 04/13/19 04/13/19 04/13/19 Previous Rx's Medication Instructions Recorded Last Taken Type AtorvaSTATin [Lipitor] 80 mg PO QHS #30 tablet 08/05/18 04/13/19 Rx Clopidogrel [Plavix] 75 mg PO QDAY #30 tablet 08/05/18 04/13/19 Rx ISOSORBIDE MONOnitrate [Imdur ER] 30 mg PO QDAY #30 tablet 08/05/18 04/13/19 Rx Metoprolol [Lopressor TAB] 50 mg PO BID #60 tablet 08/05/18 04/13/19 Rx metFORMIN [Glucophage] 500 mg PO BID #60 tablet 08/05/18 04/13/19 Rx Enoxaparin 100 mg SUB-Q Q12HR #14 syringe 04/14/19 Unknown Rx Warfarin [Coumadin] 7.5 mg PO DAILY@1700 #30 tablet 04/14/19 Unknown Rx glyBURIDE [Diabeta] 5 mg PO QDAY tablet 04/14/19 Unknown Rx Promethazine HCl [Promethazine TAB] 12.5 mg PO [id number] PRN #15 tab 07/05/19 Unknown Rx Ibuprofen [Motrin] 800 mg PO Q8HR PRN #30 tablet 09/10/21 Unknown Rx Sulfamethoxazole/Trimethoprim 1 each PO Q12H #20 tablet 09/10/21 Unknown Rx [Bactrim DS TAB] traMADoL [Ultram 50 MG tab] 50 mg PO Q6H PRN #10 tablet 09/10/21 Unknown Rx Allergies Allergy/AdvReac Type Severity Reaction Status Date / Time No Known Allergies Allergy Unverified 10/01/14 08:12 ED Review of Systems ROS: Stated complaint: CYST Other details as noted in HPI Constitutional: denies: chills, fever Eyes: denies: eye pain, eye discharge, vision change ENT: denies: ear pain, throat pain Respiratory: denies: cough, shortness of breath, wheezing Cardiovascular: denies: chest pain, palpitations Endocrine: no symptoms reported Gastrointestinal: denies: abdominal pain, nausea, vomiting, diarrhea Genitourinary: denies: urgency, dysuria Musculoskeletal: arthralgia (posterior left thigh painful tag). denies: back pain, joint swelling Skin: other (swollen painful large skin tag on posterior left thigh). 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) Hx Congestive Heart Failure: No Hx Diabetes: Yes Hx Asthma: No Hx COPD: No Additional medical history: Noncompliant - Surgical History Hx Coronary Stent: Yes Additional Surgical History: Colon cancer surgery - Social History Smoking Status: Never Smoker - Medications Home Medications: Home Medications Medication Instructions Recorded Confirmed Last Taken Type AtorvaSTATin [Lipitor] 80 mg PO QHS #30 tablet 08/05/18 04/13/19 04/13/19 Rx Clopidogrel [Plavix] 75 mg PO QDAY #30 tablet 08/05/18 04/13/19 04/13/19 Rx ISOSORBIDE MONOnitrate [Imdur ER] 30 mg PO QDAY #30 tablet 08/05/18 04/13/19 04/13/19 Rx Metoprolol [Lopressor TAB] 50 mg PO BID #60 tablet 08/05/18 04/13/19 04/13/19 Rx metFORMIN [Glucophage] 500 mg PO BID #60 tablet 08/05/18 04/13/19 04/13/19 Rx Valsartan [Diovan] 160 mg PO QDAY 04/13/19 04/13/19 04/13/19 History Enoxaparin 100 mg SUB-Q Q12HR #14 syringe 04/14/19 Unknown Rx Warfarin [Coumadin] 7.5 mg PO DAILY@1700 #30 tablet 04/14/19 Unknown Rx glyBURIDE [Diabeta] 5 mg PO QDAY tablet 04/14/19 Unknown Rx Promethazine HCl [Promethazine TAB] 12.5 mg PO [id number] PRN #15 tab 07/05/19 Unknown Rx Ibuprofen [Motrin] 800 mg PO Q8HR PRN #30 tablet 09/10/21 Unknown Rx Sulfamethoxazole/Trimethoprim 1 each PO Q12H #20 tablet 09/10/21 Unknown Rx [Bactrim DS TAB] traMADoL [Ultram 50 MG tab] 50 mg PO Q6H PRN #10 tablet 09/10/21 Unknown Rx ED Physical Exam - General Limitations: No Limitations General appearance: alert, in no apparent distress - Head Head exam: Present: atraumatic, normocephalic, normal inspection - Eye Eye exam: Present: normal appearance, PERRL, EOMI Pupils: Present: normal accommodation - ENT ENT exam: Present: normal exam, normal orophraynx, mucous membranes moist, TM's normal bilaterally, normal external ear exam - Neck Neck exam: Present: normal inspection, full ROM. Absent: tenderness - Respiratory Respiratory exam: Present: normal lung sounds bilaterally. Absent: respiratory distress, wheezes, rales, rhonchi, chest wall tenderness, accessory muscle use, decreased breath sounds, prolonged expiratory - Cardiovascular Cardiovascular Exam: Present: regular rate, normal rhythm, normal heart sounds. Absent: systolic murmur, diastolic murmur, rubs, gallop - GI/Abdominal GI/Abdominal exam: Present: soft, normal bowel sounds. Absent: tenderness, guarding, rebound, hyperactive bowel sounds, hypoactive bowel sounds, organomegaly, mass - Extremities Exam Extremities exam: Present: normal inspection, full ROM, tenderness (Palpable localized tender 5 cm skin tag), normal capillary refill. Absent: pedal edema, joint swelling, calf tenderness - Back Exam Back exam: Present: normal inspection, full ROM. Absent: tenderness, CVA tenderness (R), muscle spasm, paraspinal tenderness, vertebral tenderness - Neurological Exam Neurological exam: Present: alert, oriented X3, CN II-XII intact, normal gait, reflexes normal - Psychiatric Psychiatric exam: Present: normal affect, normal mood - Skin Skin exam: Present: warm, dry, intact, normal color, other (swollen severely tender posterior left thigh skin tag). Absent: rash ED Course Vital Signs 09/09/21 17:37 Temperature 98.7 F Pulse Rate 90 Respiratory 18 Rate Blood Pressure 162/90 [Left] O2 Sat by Pulse 99 Oximetry ED Medical Decision Making - Medical Decision Making This is a 66-year-old male with a history of hypertension, coronary artery disease status post PTCA stents and iau-[id number] diabetes who presented to the ED with complaint of acute onset persistent painful posterior left thigh pain due to large painful mall on posterior left thigh for the last 1 week. Patient stated that the pain is worsened in the last 3 days such that the started bleeding with any movement. In the ED, patient is alert and oriented x3 and is not in any distress. Patient was treated for pain in the ED and given initial oral antibiotics. The painful mole was removed and the area cleaned extensively and the wound closed with sutures. The patient tolerated the procedure well. Therefore the wound was dressed appropriately and the patient was discharged home on medications for pain, and advised to follow-up with her primary care physician in 7 to 10 days for reevaluation or return to the ED immediately if symptoms get worse. - Differential Diagnosis skin tag; puncture wound; open wound Critical care attestation.: If time is entered above; I have spent that time in minutes in the direct care of this critically ill patient, excluding procedure time. ED Disposition Clinical Impression: Skin tag, Musculoskeletal pain of left thigh Disposition: HOME / SELF CARE / HOMELESS Is pt being admited?: No Does the pt Need Aspirin: No Condition: Stable Instructions: Skin Tag, Adult Additional Instructions: Take medication with food, drink plenty of fluids and follow-up with your primary care physician in 7 to 10 days for reevaluation. Return to the ED immediately if symptoms get worse. Otherwise return to the ED or to your primary care physician in 12 to 14 days for suture removal. Prescriptions: Sulfamethoxazole/Trimethoprim [Bactrim DS TAB] 1 each PO Q12H #20 tablet Ibuprofen [Motrin] 800 mg PO Q8HR PRN #30 tablet PRN Reason: Pain , Severe (7-10) traMADoL [Ultram 50 MG tab] 50 mg PO Q6H PRN #10 tablet PRN Reason: Pain Referrals: [facility] [Provider Group] - 7-10 days Time of Disposition: 00:17 Print Language: SAMI
== END 2021-09-10 01:00 | disposition home or self-care (01) ==
LOC: ED 17:35
DX: K64.4 Residual hemorrhoidal skin tags (principal); M79.652 Pain in left thigh; I10 Essential (primary) hypertension; E11.8 Type 2 diabetes mellitus with unspecified complications
CPT/HCPCS: 99283; J3490; Q0162